=== PATIENT | female | born 2005 | race Caucasian/White ===

== ENCOUNTER 2023-10-04 07:45 | Emergency (ER) | payer MEDICAID, SELFPAY ==
[2023-10-04 07:46] VITALS: BP 160/91; PULSE 97; RESP 14; TEMP 36.8; O2SAT 97; BMI 53.1
[2023-10-04 08:09] LABS: Microscopic, Urine URINE MICROSCOPIC (MICROSCOPIC)
[2023-10-04 08:19] LABS: Coronavirus 19, PCR Not Detected (NotDetected); Influenza A, PCR Not Detected (NotDetected); Influenza B, PCR Not Detected (NotDetected)
[2023-10-04] MEDS: LACTATED RINGERS 1000ML 1,000 ML 999 ML IV (08:19)
[2023-10-04] MEDS: ONDANSETRON 4MG/2ML VIAL 4 MG IV (08:20)
[2023-10-04 08:22] LABS: Basophils % 0.4 % (0.1-2.0); Eosinophils # 0.2 K/mm3 (0.0-0.4); Eosinophils % 2.3 % (0.1-12.0); Hematocrit 44.7 % (37.0-47.0); Hemoglobin 14.7 g/dL (12.2-16.2); Lymphocytes # 1.6 K/mm3 (0.7-4.5); Mean Corpuscular Hemoglobin 29.3 pg (27.0-31.2); Mean Corpuscular Volume 88.7 fl (81-99); Mean Platelet Volume 8.2 fl (7.4-10.4); Monocytes # 0.4 K/mm3 (0.1-1.0); Monocytes % 5.6 % (1.7-9.3); Neutrophils # 5.6 K/mm3 (1.8-7.8); Neutrophils % 71.7 % (37.0-80.0); Platelet Count 373 K/mm3 (142-424); Red Blood Count 5.04 M/mm3 (4.20-5.40); Red Cell Distribution Width 13.7 % (11.5-17.5); White Blood Count 7.8 K/mm3 (4.5-13.0)
[2023-10-04 08:30] VITALS: BP 127/82; PULSE 90; RESP 20; O2SAT 98
[2023-10-04 08:30] LABS: Appearance,Urine CLEAR (Clear); Bilirubin,Urine Negative (Negative); Blood, Urine Negative (Negative); Color,Urine YELLOW (Yellow); Glucose,Urine (UA) Negative (Negative); Ketones,Urine Negative (Negative); Leukocyte Esterase,Urine Negative (Negative); Nitrate,Urine Negative (Negative); Protein,Urine Negative (Negative); Specific Gravity, Urine >= 1.030 (1.005-1.030); Urobilinogen,Urine 0.2 EU/dl (0.2)
[2023-10-04 08:30] LABS: Chloride 104 mmol/L (98-107); Potassium 3.9 mmoL/L (3.5-5.1); Sodium 137 mmol/L (136-145)
[2023-10-04 08:32] LABS: Blood Urea Nitrogen 12 mg/dl (7-17); Creatinine Clearance Estimated 101 mL/min (50-200); Estimated Glomerular Filt Rate 80 ml/min (>60); GFR (African American) 97 ML/MIN (>60)
--- NOTE | 2023-10-04 08:32 | PC.NURSE ---
Rounded on pt to see if they had any needs. No needs at this time.
[2023-10-04 08:33] LABS: Alanine Aminotransferase 39 U/L (12-78); Albumin Level 4.4 g/dl (3.5-5.0); Albumin/Globulin Ratio 1.3 (1.1-1.8); Alkaline Phosphatase 62 U/L (38-126); Anion Gap 5.9 mEq/L (5-15); Aspartate Amino Transferase 36 U/L (14-36); Bilirubin,Total 0.7 mg/dl (0.2-1.3); Calcium 8.4 mg/dl (8.4-10.2); Carbon Dioxide 31 mmol/L (22.0-30.0); Globulin 3.3 g/dL (1.3-3.2); Glucose 104 mg/dl (74-100); Lipase 71 U/L (23-300); Total Protein,Serum 7.7 g/dl (6.3-8.2)
--- NOTE | 2023-10-04 08:42 | ED_ITS ---
Discharge Plan Disposition Patient Disposition: Home, Self-Care Prescriptions Prescriptions: New ondansetron 4 mg tablet,disintegrating 4 mg PO Q6H PRN (Reason: nausea and vomiting) Qty: 10 0RF Referrals Follow up/Referrals: Tahir Jauregui MD [Primary Care Provider] - See instructions Activity Restrictions/Add. Instructions Additional Instructions/Restrictions: Call your family doctor to establish care for this visit to the emergency department and schedule follow-up within 48 hours to ensure improvement. If you have any worsening of your condition or any other concerning signs or symptoms, return to the emergency department or your primary care doctor for further evaluation. Clinical Impressions Clinical Impression: Vomiting Instructions Patient Instructions: DI for Diarrhea and Traveler's Diarrhea -- Adult, DI for Diarrhea and Traveler's Diarrhea -- Child, DI for Nausea -- Adult, DI for Nausea -- Child Discharge ED Provider: Shantanu Teran General Adult HPI General Chief complaint: Nausea/Vomiting/Diarrhea Stated complaint: Nausea, diarrea, vomiting, abd pain Time Seen by Provider: 10/04/23 07:49 Mode of Arrival: Ambulatory Source of Information: Patient Limitations: No Limitations Description of Symptoms (Recalled from ER Triage Doc. by RN): Pt reports N/V/D that started last night and has gotten worse this am. She also endorses mild abd discomfort as well. Abd is soft and non-tender. History of Present Illness HPI narrative: 18-year-old female history of pancreatitis presenting with abdominal cramping, vomiting and diarrhea. Started yesterday morning, 10/03. Has not noticed anything that makes it better or worse. Not associated with food intake. Vomiting is nonbloody, nonbilious, diarrhea is nonbloody, not mucousy. Patient having no abdominal discomfort in the absence of vomiting other than mild cramping. No urinary symptoms. States that she was around numerous sick kids recently, but unsure of their symptoms. Related Data Previous Rx's Medication Instructions Recorded ondansetron 4 mg disintegrating 4 mg PO Q6H PRN nausea and 10/04/23 tablet vomiting #10 tabs Allergies Allergy/AdvReac Type Severity Reaction Status Date / Time No Known Allergies Allergy Verified 10/04/23 08:05 [facility] Disclaimer: The information contained in this section may have been updated after the patient was seen, as this information can be updated by other users. Surgical History (Updated 10/04/23 @ 08:06 by Nilesh Farah RN) Hx of cholecystectomy Social History Smoking Status: Never smoker alcohol intake: current current occupational status: employed Travel in the last 8 weeks: None ROS Obtained: Yes All systems reviewed & no additional complaints except as documented Physical Exam General General appearance: alert and in no apparent distress Head Head exam: atraumatic and normocephalic Eye Eye exam: Present normal appearance, PERRL and EOMI ENT ENT exam: Present mucous membranes moist Neck Neck exam: Present normal inspection, full ROM and trachea midline Respiratory Respiratory exam: Absent respiratory distress, wheezes, stridor, accessory muscle use or prolonged expiratory phase Cardiovascular Cardiovascular exam: Present normal rhythm Abdominal Exam Abdominal exam: Present soft; Absent distention, tenderness, guarding, rebound or rigidity Extremities Exam Extremities exam: Absent edema Neurological Exam Neurological exam: Present alert, oriented X3, CN II-XII intact and normal gait; Absent motor sensory deficit Skin Skin exam: Present warm and dry; Absent diaphoresis or erythema Medical Decision Making Medical Records Medical records reviewed: Yes I reviewed the patient's medical records. Jon Inquiry Pt receiving controlled substance: No Jon was queried for this patient: No Vital Signs: 10/04/23 07:46 10/04/23 08:30 Temperature 98.2 F Temperature Source Oral Pulse Rate 90 Pulse Rate [Right Radial] 97 H Respiratory Rate 14 20 Blood Pressure 127/82 Blood Pressure [Right Arm] 160/91 H Blood Pressure Mean 97 Blood Pressure Mean [Right Arm] 114 Blood Pressure Source [Right Arm] Automatic Cuff Blood Pressure Position [Right Arm] Sitting 02 Sat by Pulse Oximetry 97 98 Oxygen Delivery Method Room Air Lab Data Lab Results 10/04/23 07:54: Urine Color Yellow, Urine Appearance Clear, Urine pH 6.0, Ur Specific [place] >= 1.030, Urine Protein Negative, Urine Glucose (UA) Negative, Urine Ketones Negative, Urine Blood Negative, Urine Nitrate Negative, Urine Bilirubin Negative, Urine Urobilinogen 0.2, Ur Leukocyte Esterase Negative, Urine RBC None, Urine WBC 3-5, Ur Squamous Epith Cells 3-5, Urine Bacteria Trace 10/04/23 08:00: WBC 7.8, RBC 5.04, Hgb 14.7, Hct 44.7, MCV 88.7, MCH 29.3, MCHC 33.0, RDW 13.7, Plt Count 373, MPV 8.2, Neut % (Auto) 71.7, Lymph % (Auto) 20.0, [place] % (Auto) 5.6, Eos % (Auto) 2.3, Baso % (Auto) 0.4, Neut # (Auto) 5.6, Lymph # (Auto) 1.6, [place] # (Auto) 0.4, Eos # (Auto) 0.2, Baso # (Auto) 0.0, Sodium 137, Potassium 3.9, Chloride 104, Carbon Dioxide 31 H, Anion Gap 5.9, BUN 12, Creatinine 0.90, Estimated Creat Clear 101, Estimated GFR 80, Est GFR ( Amer) 97, Glucose 104 H, Calcium 8.4, Total Bilirubin 0.7, AST 36, ALT 39, Alkaline Phosphatase 62, Total Protein 7.7, Albumin 4.4, Globulin 3.3 H, Albumin/Globulin Ratio 1.3, Lipase 71, HCG, Quant < 2, SARS-CoV-2 (PCR) Not detected, Influenza A Untype (PCR) Not detected, Influenza Type B (PCR) Not detected 10/04/23 08:00 10/04/23 08:00 Orders (Tests/Meds): ED MEDICATIONS Discontinued Medications Generic Name Dose Route Start Last Admin Trade Name Freq PRN Reason Stop Dose Admin Lactated Ringer's 1,000 mls @ 999 mls/hr 10/04/23 08:06 10/04/23 08:19 Lactated Ringer's 1000 Ml Bag IV 10/04/23 09:06 999 mls/hr .Q1H1M ONE Administration Ondansetron HCl 4 mg 10/04/23 08:06 10/04/23 08:20 Ondansetron 4mg/2ml Vial IV 10/04/23 08:07 4 mg ONCE ONE Administration ORDERS Category Date Time Status CBC w/Auto Diff [Complete Blood Count Auto Diff] Stat Lab 10/04/23 08:00 Compl eted CMP [Comprehensive Metabolic Panel] Stat Lab 10/04/23 08:00 Completed HCG,Quantitative Stat Lab 10/04/23 08:00 Completed Lipase Stat Lab 10/04/23 08:00 Completed Rapid PCR Covid and Flu A/B Stat Lab 10/04/23 08:00 Completed UA [Urinalysis and Microscopic] Stat Lab 10/04/23 07:54 Completed Medical Decision Narrative: 18-year-old female history of pancreatitis, cholecystectomy presenting with abdominal cramping, vomiting and diarrhea. Started yesterday morning, 10/03. Has not noticed anything that makes it better or worse. Not associated with food intake. Vomiting is nonbloody, nonbilious, diarrhea is nonbloody, not mucousy. Patient having no abdominal discomfort in the absence of vomiting other than mild cramping. No urinary symptoms. States that she was around numerous sick kids recently, but unsure of their symptoms. History was obtained via conversation with patient. On arrival, patient hemodynamically stable, alert, oriented x4, appropriate, GCS 15, moving all extremities spontaneously, pupils equal and reactive to light. Full physical exam performed and significant for very well-appearing patient in no acute distress. Abdomen is soft, nontender, nondistended. No flank tenderness. Not actively retching, hemodynamically stable and afebrile. Differential includes PUD, gastritis, enteritis, gastroenteritis, pancreatitis, SBO, colitis, diverticulitis, nephrolithiasis, UTI, , cholecystitis, appendicitis, hepatitis, torsion, aortic pathology, mesenteric ischemia among others. Patient was given Zofran IV, 1 L LR for symptomatic management and correction of underlying abnormalities. Workup independently interpreted and significant for nonactionable CBC or chemistry. negative, UA negative. Lipase normal. See radiology read for full review of final results. CT of the abdomen pelvis was considered. Deemed unnecessary at this time given nonperitoneal ache abdomen, very well- appearing girl, acuity of symptoms, numerous sick contacts, and history more consistent with infectious process. On reevaluation, patient resting comfortably in bed. States that she is feeling better and wants to go home and go to bed. Given patient presentation, workup, history, this most likely represents acute gastritis versus other vomiting syndrome. Because patient at baseline without signs or symptoms of clinical decompensation, deemed appropriate for discharge. Results were relayed to patient who voiced understanding and were agreeable to outpatient management and follow up. At the time of discharge the patient was hemodynamically stable, tolerating PO, and mobilizing appropriately. Critical Care Critical Care Time Critical Care Time: No
[2023-10-04 08:49] LABS: Bacteria,Urine Trace /lpf
[2023-10-04 09:03] LABS: HCG,Quantitative < 2 mIU/ml (0-5.42)
--- NOTE | 2023-10-04 09:53 | PC.NURSE ---
rounded on pt, blanket given to pt
--- NOTE | 2023-10-04 10:11 | PC.NURSE ---
Rounded on pt to see if they had any needs. Pt asked for a blanket and one was given to the pt. No other needs at this time
[2023-10-04 10:19] VITALS: BP 148/88; PULSE 90; RESP 18; TEMP 36.8; O2SAT 98
== END 2023-10-04 10:20 | disposition home or self-care (01) ==
PROVIDERS: Emergency Provider Emergency Medicine; PCP Internal Medicine Adolescent Medicine
DX: R10.9 Unspecified abdominal pain (principal); R11.2 Nausea with vomiting, unspecified; R19.7 Diarrhea, unspecified
CPT/HCPCS: 80053; 81001; 83690; 84702; 85025; 87636; 96361; 96374; 99285; J2405

== ENCOUNTER 2025-07-29 21:38 | Emergency (ER) | payer MEDICAID, SELFPAY ==
[2025-07-29] VITALS (11 sets, daily range): BP systolic 103–136; BP diastolic 47–77; PULSE 69–81; RESP 17–18; TEMP 36.8; O2SAT 94–97; BMI 59.3
--- OUTSIDE RECORDS SUMMARY | 2025-07-29 21:47 | XMS_ITS | Data Portability ---
Author Organization [facility] Address [address] [place] [address] Assessment No assessment recorded. Plan of Treatment Reminders Order Date Submit Date Provider Last Modified By Organization Details Last Modified Time Details Appointments FOLLOW UP 15 2025 01:30P M Salena Bray APRN Not available Not available Not available Lab urinalysi s, dipstick [address], [id number], 10/15/2024 13:42:22 test, urine [address], [address], 10/15/2024 13:42:29 lipid panel, serum 2024 025 [facility], [address] [place] [address], [address], 10/20/2024 11:06:58 CBC w/ auto diff 2024 025 [facility], [address] [place] [address], [address], 10/20/2024 11:06:57 CMP, serum or plasma 2024 025 [facility], [address] [place] [address], [address], 10/20/2024 11:06:57 prolactin , serum 2024 025 [facility] [address] [place], [address], 10/20/2024 11:06:59 dhea, serum 2024 025 [facility] [address] [place], [address], 10/20/2024 11:06:59 magnesium , serum or plasma 2024 025 [facility] [address] [place], [address], 10/20/2024 11:06:59 PTH (parathyr oid hormone), intact, serum or plasma 2024 025 [facility] [address] [place], [address], 10/20/2024 11:07:00 lh + FSH, serum 2024 025 [facility] [address] [place], [address], 10/20/2024 11:06:58 HbA1c (hemoglob in A1c), blood 2024 025 [facility] [address] [place], [address], 10/20/2024 11:06:58 vitamin D, 25-hydrox y, total, serum 2024 025 [facility] [address] [place], [address], 10/20/2024 11:06:59 lipid panel, serum 2023 024 [facility]), [address] [place], [address], 04/10/2024 08:14:06 CBC w/ auto diff 2023 024 [facility] [address] [place], [address], 04/10/2024 08:14:05 CMP, serum or plasma 2023 024 [facility] [address] [place], [address], 04/10/2024 08:14:06 TSH + free T4, serum 2023 024 [facility] [address] [place], [address], 04/10/2024 08:14:04 HbA1c (hemoglob in A1c), blood 2023 024 [facility] [address] [place], [address], 04/10/2024 08:14:07 vitamin D, 25-hydrox y, total, serum 2023 024 [facility] [address] [place], [address], 04/10/2024 08:14:08 Referral gynecolog ist referral - first available appt 2024 025 [email or web address] Neo Salazar [facility], [address] [place] [address] Rd, Alber[place], [place], [address], 10/22/2024 09:08:38 dermatolo gist referral - first available appt 2023 024 [email or web address] [facility], [address] [place] [address], [id number], 05/20/2024 15:38:37 Procedures foreign body removal, ear canal (PROC) 2023 024 Not available 04/09/2024 11:40:42 Surgeries None recorded. Imaging electroca rdiogram 03/04/ 2025 03/04/2 025 [facility], [address] [place] [address], [id number], 10/15/2024 13:39:46 XR, lumbar spine 2023 024 [facility], [address] [place] [address], [id number], 04/09/2024 16:50:54 Medication Orders ergocalci ferol (vitamin D2) 1,250 mcg (50,000 unit) capsule 2024 025 [facility], [address] [place] [address], [address], 10/15/2024 14:21:46 omeprazol e 20 mg capsule,d elayed release 2024 025 [facility], [address] [place] [address], [id number], 01/07/2025 12:55:42 omeprazol e 20 mg capsule,d elayed release [address] [facility], [address] [place] [address], [address], 07/05/2024 11:35:51 Patient Targets Encounter Date Encounter Id Patient Goals Patient Target Last Modified By Organization Details Last Modified Time 04/11/2024 [id number] Continue care with PCP [email or web address] Not available 04/11/2024 09:11:26 Patient Instructions Encounter Date Encounter Id Patient Instructions Last Modified By Organization Details Last Modified Time 04/11/2024 [id number] Patient was referred to me by PCP staff. Patient stated that she needed assistance because she did not have the money to cover her need of clothing. Clothing was obtained for patient and given to her. I also let patient know that Insurance offers other extra benefits and how to obtain those so she will have extra money for other items she may need. I gave patient my contact information for follow up if needed. 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 first available appt Referring Physician: Lori Bray [facility], Encounter Date: 10/15/2024 Results Created Date Observation Date Name Description Value Unit Range Abnormal Flag Note LastModifiedBy Organization Detail LastModifiedTime 04/09/2004/10/2024 TSH+F REE T4 TSH 2.310 uIU/m L 0.450- 4.500 normal Not Available [facility] ([facility]) [address] [place], [address], 04/10/2024 08:14:04 04/09/2004/10/2024 TSH+F REE T4 T4,free(dire ct) 1.29 NG/dL 0.82-1 .77 normal Not Available [facility] ([facility]) [address] [place], [address], 04/10/2024 08:14:04 04/09/20 24 04/10/2024 CBC WITH DIFFE RENTI AL/PL ATELE T WBC 10.0 x10e3 /uL 3.4-10 .8 normal Not Available [facility] ([facility]) [address] [place], [address], 04/10/2024 08:14:05 04/09/20 24 04/10/2024 CBC WITH DIFFE RENTI AL/PL ATELE T RBC 5.04 x10e6 /uL 3.77-5 .28 normal Not Available [facility] ([facility]) [address] [place], [address], 04/10/2024 08:14:05 04/09/20 24 04/10/2024 CBC WITH DIFFE RENTI AL/PL ATELE T hemoglobin 14.3 g/dL 11.1-1 5.9 normal Not Available [facility] ([facility]) [address] [facility], [place], [address], 04/10/2024 08:14:05 04/09/20 24 04/10/2024 CBC WITH DIFFE RENTI AL/PL ATELE T hematocrit 45.0 % 34.0-4 6.6 normal Not Available [facility] ([facility]) [address] [facility], [place], [address], 04/10/2024 08:14:05 04/09/20 24 04/10/2024 CBC WITH DIFFE RENTI AL/PL ATELE T MCV 89 fL 79-97 normal Not Available [facility] ([facility]) [address] [facility], [place], [address], 04/10/2024 08:14:05 04/09/2004/10/2024 CBC WITH DIFFE RENTI AL/PL ATELE T MCH 28.4 pg 26.6-3 3.0 normal Not Available [facility] ([facility]) [address] [place], [address], 04/10/2024 08:14:05 04/09/20 24 04/10/2024 CBC WITH DIFFE RENTI AL/PL ATELE T MCHC 31.8 g/dL 31.5-3 5.7 normal Not Available [facility] ([facility]) [address] [place], [address], 04/10/2024 08:14:05 04/09/20 24 04/10/2024 CBC WITH DIFFE RENTI AL/PL ATELE T RDW 13.0 % 11.7-1 5.4 Not Available [facility] ([facility]) [address] [place], [address], 04/10/2024 08:14:05 04/09/20 24 04/10/2024 CBC WITH DIFFE RENTI AL/PL ATELE T platelets 434 x10e3 /uL 150-45 0 normal Not Available [facility] ([facility]) [address] [facility], [place], [address], 04/10/2024 08:14:05 04/09/20 24 04/10/2024 CBC WITH DIFFE RENTI AL/PL ATELE T neutrophils 66 % not estab. normal Not Available [facility] ([facility]) [address] [facility], [place], [address], 04/10/2024 08:14:05 04/09/20 24 04/10/2024 CBC WITH DIFFE RENTI AL/PL ATELE T lymphs 25 % not estab. normal Not Available [facility] ([facility]) [address] [facility], [place], [address], 04/10/2024 08:14:05 04/09/20 24 04/10/2024 CBC WITH DIFFE RENTI AL/PL ATELE T monocytes 7 % not estab. normal Not Available [facility] ([facility]) [address] [facility], [place], [address], 04/10/2024 08:14:05 04/09/20 24 04/10/2024 CBC WITH DIFFE RENTI AL/PL ATELE T eos 2 % not estab. normal Not Available [facility] ([facility]) [address] [place], [address], 04/10/2024 08:14:05 04/09/20 24 04/10/2024 CBC WITH DIFFE RENTI AL/PL ATELE T basos 0 % not estab. normal Not Available [facility] ([facility]) [address] [place], [address], 04/10/2024 08:14:05 04/09/20 24 04/10/2024 CBC WITH DIFFE RENTI AL/PL ATELE T immature cells YEAST MAKER Not Available [facility] ([facility]) [address] [place], [address], 04/10/2024 08:14:05 04/09/20 24 04/10/2024 CBC WITH DIFFE RENTI AL/PL ATELE T neutrophils (absolute) 6.5 x10e3 /uL 1.4-7. 0 normal Not Available [facility] ([facility]) [address] [facility], [place], [address], 04/10/2024 08:14:05 04/09/20 24 04/10/2024 CBC WITH DIFFE RENTI AL/PL ATELE T lymphs (absolute) 2.5 x10e3 /uL 0.7-3. 1 normal Not Available [facility] ([facility]) [address] [place], [address], 04/10/2024 08:14:05 04/09/20 24 04/10/2024 CBC WITH DIFFE RENTI AL/PL ATELE T monocytes(ab solute) 0.7 x10e3 /uL 0.1-0. 9 normal Not Available [facility] ([facility]) [address] [facility], [place], [address], 04/10/2024 08:14:05 04/09/20 24 04/10/2024 CBC WITH DIFFE RENTI AL/PL ATELE T eos (absolute) 0.2 x10e3 /uL 0.0-0. 4 normal Not Available [facility] ([facility]) [address] [place], [address], 04/10/2024 08:14:05 04/09/20 24 04/10/2024 CBC WITH DIFFE RENTI AL/PL ATELE T baso (absolute) 0.0 x10e3 /uL 0.0-0. 2 normal Not Available [facility] ([facility]) [address] [place], [address], 04/10/2024 08:14:05 04/09/20 24 04/10/2024 CBC WITH DIFFE RENTI AL/PL ATELE T immature granulocytes 0 % not estab. Not Available [facility] ([facility]) [address], [place], [address], 04/10/2024 08:14:05 04/09/20 24 04/10/2024 CBC WITH DIFFE RENTI AL/PL ATELE T immature grans (abs) 0.0 x10e3 /uL 0.0-0. 1 Not Available [facility] ([facility]) [address], [place], [address], 04/10/2024 08:14:05 04/09/20 24 04/10/2024 CBC WITH DIFFE RENTI AL/PL ATELE T NRBC YEAST MAKER Not Available [facility] ([facility]) [address], [place], [address], 04/10/2024 08:14:05 04/09/20 24 04/10/2024 CBC WITH DIFFE RENTI AL/PL ATELE T hematology comments: YEAST MAKER Not Available [facility] ([facility]) [address], [place], [address], 04/10/2024 08:14:05 04/09/20 24 04/10/2024 COMP. METAB OLIC PANEL (14) glucose 91 mg/dL 70-99 normal Not Available [facility] ([facility]) [address] [facility], [place], [address], 04/10/2024 08:14:06 04/09/20 24 04/10/2024 COMP. METAB OLIC PANEL (14) BUN 13 mg/dL 6-20 normal Not Available [facility] ([facility]) [address] [facility], [place], [address], 04/10/2024 08:14:06 04/09/20 24 04/10/2024 COMP. METAB OLIC PANEL (14) creatinine 0.78 mg/dL 0.57-1 .00 normal Not Available [facility] ([facility]) [address] [facility], [place], [address], 04/10/2024 08:14:06 04/09/20 24 04/10/2024 COMP. METAB OLIC PANEL (14) eGFR 111 mL/mi n/1.7 3 >59 normal Not Available [facility] ([facility]) [address] [facility], [place], [address], 04/10/2024 08:14:06 04/09/20 24 04/10/2024 COMP. METAB OLIC PANEL (14) BUN/creatini ne ratio 17 9-23 normal Not Available [facility] ([facility]) [address] [facility], [place], [address], 04/10/2024 08:14:06 04/09/20 24 04/10/2024 COMP. METAB OLIC PANEL (14) sodium 137 mmol/ L 134-14 4 normal Not Available [facility] ([facility]) [address] [facility], [place], [address], 04/10/2024 08:14:06 04/09/20 24 04/10/2024 COMP. METAB OLIC PANEL (14) potassium 4.6 mmol/ L 3.5-5. 2 normal Not Available [facility] ([facility]) [address] [facility], [place], [address], 04/10/2024 08:14:06 04/09/20 24 04/10/2024 COMP. METAB OLIC PANEL (14) chloride 100 mmol/ L 96-106 normal Not Available [facility] ([facility]) [address] [facility], [place], [address], 04/10/2024 08:14:06 04/09/20 24 04/10/2024 COMP. METAB OLIC PANEL (14) carbon dioxide, total 25 mmol/ L 20-29 normal Not Available [facility] ([facility]) [address] [facility], [place], [address], 04/10/2024 08:14:06 08/27/04/10/2024 COMP. METAB OLIC PANEL (14) calcium 9.7 mg/dL 8.7-10 .2 normal Not Available [facility] ([facility]) [address] [facility] [place], [address], 04/10/2024 08:14:06 04/09/20 24 04/10/2024 COMP. METAB OLIC PANEL (14) protein, total 7.2 g/dL 6.0-8. 5 normal Not Available [facility] ([facility]) [address] [facility], [place], [address], 04/10/2024 08:14:06 04/09/2004/10/2024 COMP. METAB OLIC PANEL (14) albumin 4.3 g/dL 4.0-5. 0 normal Not Available [facility] ([facility]) [address] [facility] [place], [address], 04/10/2024 08:14:06 04/09/20 24 04/10/2024 COMP. METAB OLIC PANEL (14) globulin, total 2.9 g/dL 1.5-4. 5 Not Available [facility] ([facility]) [address] [facility] [place], [address], 04/10/2024 08:14:06 04/09/20 24 04/10/2024 COMP. METAB OLIC PANEL (14) bilirubin, total 0.3 mg/dL 0.0-1. 2 normal Not Available [facility] ([facility]) [address] [facility] [place], [address], 04/10/2024 08:14:06 04/09/20 24 04/10/2024 COMP. METAB OLIC PANEL (14) alkaline phosphatase 59 IU/L 44-121 normal Not Available [facility] ([facility]) [address] [facility], [place], [address], 04/10/2024 08:14:06 04/09/20 24 04/10/2024 COMP. METAB OLIC PANEL (14) AST (SGOT) 22 IU/L 0-40 normal Not Available [facility] ([facility]) [address] [place], [address], 04/10/2024 08:14:06 04/09/20 24 04/10/2024 COMP. METAB OLIC PANEL (14) ALT (SGPT) 30 IU/L 0-32 normal Not Available [facility] ([facility]) [address] [facility] [place], [address], 04/10/2024 08:14:06 04/09/20 24 04/10/2024 LIPID PANEL cholesterol, total 195 mg/dL 100-19 9 normal Not Available [facility] ([facility]) [address] [facility] [place], [address], 04/10/2024 08:14:06 04/09/20 24 04/10/2024 LIPID PANEL triglyceride s 132 mg/dL 0-149 normal Not Available [facility] ([facility]) [address] [facility] [place], [address], 04/10/2024 08:14:06 04/09/20 24 04/10/2024 LIPID PANEL HDL cholesterol 51 mg/dL >39 normal Not Available [facility] ([facility]) [address] [facility] [place], [address], 04/10/2024 08:14:06 04/09/20 24 04/10/2024 LIPID PANEL VLDL cholesterol angie 23 mg/dL 5-40 Not Available [facility] ([facility]) [address] [facility] [place], [address], 04/10/2024 08:14:06 04/09/20 24 04/10/2024 LIPID PANEL LDL chol calc ([facility] [place]) 121 mg/dL 0-99 above high normal Not Available [facility] ([facility]) [address] [facility] [place], [address], 04/10/2024 08:14:06 08/27/20 24 04/10/2024 LIPID PANEL LDL calc comment: YEAST MAKER Not Available [facility] ([facility]) [address] [facility], [place], [address], 04/10/2024 08:14:06 04/09/20 24 04/10/2024 HEMOG LOBIN A1C hemoglobin A1C 5.7 % 4.8-5. 6 above high normal Predi abete s: 5.7 - 6.4 Diabe reinaldo: >6.4 Glyce daisy contr ol for adult s with diabe reinaldo: <7.0 Not Available [facility] ([facility]) [address] [facility], [place], [address], 04/10/2024 08:14:07 04/09/20 24 04/10/2024 VITAM IN D, 25-HY DROXY vitamin D, 25-hydroxy 12.4 NG/mL 30.0-1 00.0 below low normal Vitam in D defic iency has been defin ed by the Insti tute of Medic ine and an Endoc rine Socie ty pract ice guide line as a level of serum 25-OH vitam in D less than 20 ng/mL (1,2) . The Endoc rine Socie ty went on to furth er defin e vitam in D insuf ficie ncy as a level betwe en 21 and 29 ng/mL (2). 1. IOM (Inst itute of Medic ine). 2009. Dieta ry refer ence bernardo es for calci um and D. Modesto vanessa [place]: The [facility] . 2. Abundio malik MF, Hao arizmendi [place], Noreen off-F errar i RAPHAEL, et al. Evalu ation , treat ment, and preve ntion of vitam in D defic iency : an Endoc rine Socie ty clini angie pract ice guide line. JCEM. 2010; 96(7) :1911 -30. Not Available [facility] ([facility]) [address] [facility], [place], [address], 04/10/2024 08:14:07 10/16/19 25 10/16/2024 CBC WITH DIFFE RENTI AL/PL ATELE T WBC 8.6 x10e3 /uL 3.4-10 .8 normal Not Available [facility] ([facility]) [address] [place], [address], 10/20/2024 11:06:57 10/16/19 25 10/16/2024 CBC WITH DIFFE RENTI AL/PL ATELE T RBC 4.69 x10e6 /uL 3.77-5 .28 normal Not Available [facility] ([facility]) [address] [place], [address], 10/20/2024 11:06:57 10/16/19 25 10/16/2024 CBC WITH DIFFE RENTI AL/PL ATELE T hemoglobin 13.1 g/dL 11.1-1 5.9 normal Not Available [facility] ([facility]) [address] [place], [address], 10/20/2024 11:06:57 10/16/19 25 10/16/2024 CBC WITH DIFFE RENTI AL/PL ATELE T hematocrit 39.3 % 34.0-4 6.6 normal Not Available [facility] ([facility]) [address] [place], [address], 10/20/2024 11:06:57 10/16/19 25 10/16/2024 CBC WITH DIFFE RENTI AL/PL ATELE T MCV 84 fL 79-97 normal Not Available [facility] ([facility]) [address] [place], [address], 10/20/2024 11:06:57 10/16/19 25 10/16/2024 CBC WITH DIFFE RENTI AL/PL ATELE T MCH 27.9 pg 26.6-3 3.0 normal Not Available [facility] ([facility]) [address] [place], [address], 10/20/2024 11:06:57 10/16/19 25 10/16/2024 CBC WITH DIFFE RENTI AL/PL ATELE T MCHC 33.3 g/dL 31.5-3 5.7 normal Not Available [facility] ([facility]) [address] [facility], [place], [address], 10/20/2024 11:06:57 10/16/19 25 10/16/2024 CBC WITH DIFFE RENTI AL/PL ATELE T RDW 13.1 % 11.7-1 5.4 Not Available [facility] ([facility]) [address] [facility], [place], [address], 10/20/2024 11:06:57 10/16/19 25 10/16/2024 CBC WITH DIFFE RENTI AL/PL ATELE T platelets 399 x10e3 /uL 150-45 0 normal Not Available [facility] ([facility]) [address] [facility], [place], [address], 10/20/2024 11:06:57 10/16/19 25 10/16/2024 CBC WITH DIFFE RENTI AL/PL ATELE T neutrophils 60 % not estab. normal Not Available [facility] ([facility]) [address] [facility], [place], [address], 10/20/2024 11:06:57 10/16/19 25 10/16/2024 CBC WITH DIFFE RENTI AL/PL ATELE T lymphs 29 % not estab. normal Not Available [facility] ([facility]) [address] [facility], [place], [address], 10/20/2024 11:06:57 10/16/19 25 10/16/2024 CBC WITH DIFFE RENTI AL/PL ATELE T monocytes 8 % not estab. normal Not Available [facility] ([facility]) [address] [facility], [place], [address], 10/20/2024 11:06:57 10/16/19 25 10/16/2024 CBC WITH DIFFE RENTI AL/PL ATELE T eos 2 % not estab. normal Not Available [facility] ([facility]) [address] [place], [address], 10/20/2024 11:06:57 10/16/19 25 10/16/2024 CBC WITH DIFFE RENTI AL/PL ATELE T basos 1 % not estab. normal Not Available [facility] ([facility]) [address] [facility], [place], [address], 10/20/2024 11:06:57 10/16/19 25 10/16/2024 CBC WITH DIFFE RENTI AL/PL ATELE T immature cells YEAST MAKER Not Available [facility] ([facility]) [address] [place], [address], 10/20/2024 11:06:57 10/16/19 25 10/16/2024 CBC WITH DIFFE RENTI AL/PL ATELE T neutrophils (absolute) 5.2 x10e3 /uL 1.4-7. 0 normal Not Available [facility] ([facility]) [address] [place], [address], 10/20/2024 11:06:57 10/16/19 25 10/16/2024 CBC WITH DIFFE RENTI AL/PL ATELE T lymphs (absolute) 2.5 x10e3 /uL 0.7-3. 1 normal Not Available [facility] ([facility]) [address] [place], [address], 10/20/2024 11:06:57 10/16/19 25 10/16/2024 CBC WITH DIFFE RENTI AL/PL ATELE T monocytes(ab solute) 0.7 x10e3 /uL 0.1-0. 9 normal Not Available [facility] ([facility]) [address] [place], [address], 10/20/2024 11:06:57 10/16/19 25 10/16/2024 CBC WITH DIFFE RENTI AL/PL ATELE T eos (absolute) 0.2 x10e3 /uL 0.0-0. 4 normal Not Available [facility] ([facility]) [address] [facility], [place], [address], 10/20/2024 11:06:57 10/16/19 25 10/16/2024 CBC WITH DIFFE RENTI AL/PL ATELE T baso (absolute) 0.1 x10e3 /uL 0.0-0. 2 normal Not Available [facility] ([facility]) [address] [facility], [place], [address], 10/20/2024 11:06:57 10/16/19 25 10/16/2024 CBC WITH DIFFE RENTI AL/PL ATELE T immature granulocytes 0 % not estab. Not Available [facility] ([facility]) [address] [facility], [place], [address], 10/20/2024 11:06:57 10/16/19 25 10/16/2024 CBC WITH DIFFE RENTI AL/PL ATELE T immature grans (abs) 0.0 x10e3 /uL 0.0-0. 1 Not Available [facility] ([facility]) [address] [facility], [place], [address], 10/20/2024 11:06:57 10/16/19 25 10/16/2024 CBC WITH DIFFE RENTI AL/PL ATELE T NRBC YEAST MAKER Not Available [facility] ([facility]) [address] [facility], [place], [address], 10/20/2024 11:06:57 10/16/19 25 10/16/2024 CBC WITH DIFFE RENTI AL/PL ATELE T hematology comments: YEAST MAKER Not Available [facility] ([facility]) [address] [facility], [place], [address], 10/20/2024 11:06:57 10/16/19 25 10/16/2024 COMP. METAB OLIC PANEL (14) glucose 106 mg/dL 70-99 above high normal Not Available [facility] ([facility]) [address] [place], [address], 10/20/2024 11:06:57 10/16/19 25 10/16/2024 COMP. METAB OLIC PANEL (14) BUN 14 mg/dL 6-20 normal Not Available [facility] ([facility]) [address] [place], [address], 10/20/2024 11:06:57 10/16/19 25 10/16/2024 COMP. METAB OLIC PANEL (14) creatinine 0.68 mg/dL 0.57-1 .00 normal Not Available [facility] ([facility]) [address] [place], [address], 10/20/2024 11:06:57 10/16/19 25 10/16/2024 COMP. METAB OLIC PANEL (14) eGFR 127 mL/mi n/1.7 3 >59 normal Not Available [facility] ([facility]) [address] [place], [address], 10/20/2024 11:06:57 10/16/19 25 10/16/2024 COMP. METAB OLIC PANEL (14) BUN/creatini ne ratio 21 9-23 normal Not Available [facility] ([facility]) [address] [place], [address], 10/20/2024 11:06:57 10/16/19 25 10/16/2024 COMP. METAB OLIC PANEL (14) sodium 139 mmol/ L 134-14 4 normal Not Available [facility] ([facility]) [address] [place], [place], [address], 10/20/2024 11:06:57 10/16/19 25 10/16/2024 COMP. METAB OLIC PANEL (14) potassium 4.4 mmol/ L 3.5-5. 2 normal Not Available [facility] ([facility]) [address] [place], [address], 10/20/2024 11:06:57 10/16/19 25 10/16/2024 COMP. METAB OLIC PANEL (14) chloride 105 mmol/ L 96-106 normal Not Available [facility] ([facility]) [address] [place], [address], 10/20/2024 11:06:57 10/16/19 25 10/16/2024 COMP. METAB OLIC PANEL (14) carbon dioxide, total 22 mmol/ L 20-29 normal Not Available [facility] ([facility]) [address] [place], [address], 10/20/2024 11:06:57 10/16/19 25 10/16/2024 COMP. METAB OLIC PANEL (14) calcium 9.2 mg/dL 8.7-10 .2 normal Not Available [facility] ([facility]) [address] [place], [address], 10/20/2024 11:06:57 10/16/19 25 10/16/2024 COMP. METAB OLIC PANEL (14) protein, total 6.7 g/dL 6.0-8. 5 normal Not Available [facility] ([facility]) [address] [facility] [place], [address], 10/20/2024 11:06:57 10/16/19 25 10/16/2024 COMP. METAB OLIC PANEL (14) albumin 4.1 g/dL 4.0-5. 0 normal Not Available [facility] ([facility]) [address] [place], [address], 10/20/2024 11:06:57 10/16/19 25 10/16/2024 COMP. METAB OLIC PANEL (14) globulin, total 2.6 g/dL 1.5-4. 5 Not Available [facility] ([facility]) [address] [facility] [place], [address], 10/20/2024 11:06:57 10/16/19 25 10/16/2024 COMP. METAB OLIC PANEL (14) bilirubin, total 0.2 mg/dL 0.0-1. 2 normal Not Available [facility] ([facility]) [address] [facility] [place], [address], 10/20/2024 11:06:57 10/16/19 25 10/16/2024 COMP. METAB OLIC PANEL (14) alkaline phosphatase 66 IU/L 44-121 normal Not Available [facility] ([facility]) [address] [facility] [place], [address], 10/20/2024 11:06:57 10/16/19 25 10/16/2024 COMP. METAB OLIC PANEL (14) AST (SGOT) 15 IU/L 0-40 normal Not Available [facility] ([facility]) [address] [place], [address], 10/20/2024 11:06:57 10/16/19 25 10/16/2024 COMP. METAB OLIC PANEL (14) ALT (SGPT) 20 IU/L 0-32 normal Not Available [facility] ([facility]) [address] [facility] [place], [address], 10/20/2024 11:06:57 10/16/19 25 10/16/2024 LIPID PANEL cholesterol, total 173 mg/dL 100-19 9 normal Not Available [facility] ([facility]) [address] [place], [address], 10/20/2024 11:06:57 10/16/19 25 10/16/2024 LIPID PANEL triglyceride s 109 mg/dL 0-149 normal Not Available [facility] ([facility]) [address] [place], [address], 10/20/2024 11:06:57 10/16/19 25 10/16/2024 LIPID PANEL HDL cholesterol 44 mg/dL >39 normal Not Available [facility] ([facility]) [address] [place], [address], 10/20/2024 11:06:57 10/16/19 25 10/16/2024 LIPID PANEL VLDL cholesterol angie 20 mg/dL 5-40 Not Available [facility] ([facility]) [address] [place], [address], 10/20/2024 11:06:57 10/16/19 25 10/16/2024 LIPID PANEL LDL chol calc ([facility] [place]) 109 mg/dL 0-99 above high normal Not Available [facility] ([facility]) [address] [place], [address], 10/20/2024 11:06:57 10/16/19 25 10/16/2024 LIPID PANEL LDL calc comment: YEAST [employer]ER Not Available [facility] ([facility]) [address] [place], [address], 10/20/2024 11:06:57 10/16/19 25 10/16/2024 FSH AND LH LH 6.0 mIU/m L normal Adult Femal e Range Folli cular phase 2.4 - 12.6 Ovula tion phase 14.0 - 95.6 Lutea l phase 1.0 - 11.4 Postm enopa usal 7.7 - 58.5 Not Available [facility] ([facility]) [address] [place], [address], 10/20/2024 11:06:58 10/16/19 25 10/16/2024 FSH AND LH FSH 4.2 mIU/m L Adult Femal e Range Folli cular phase 3.5 - 12.5 Ovula tion phase 4.7 - 21.5 Lutea l phase 1.7 - 7.7 Postm enopa usal 25.8 - 134.8 Not Available [facility] ([facility]) [address] [place], [address], 10/20/2024 11:06:58 10/16/19 25 10/16/2024 HEMOG LOBIN A1C hemoglobin A1C 5.7 % 4.8-5. 6 above high normal Predi abete s: 5.7 - 6.4 Diabe reinaldo: >6.4 Glyce daisy contr ol for adult s with diabe reinaldo: <7.0 Not Available [facility] ([facility]) [address] [place], [address], 10/20/2024 11:06:58 10/16/19 25 10/20/2024 DHEA, SERUM dehydroepian drosterone (DHEA) 204 NG/dL 701 Not Available [facility] ([facility]) [address] [facility], [place], [address], 10/20/2024 11:06:58 10/16/19 25 10/16/2024 PROLA CTIN prolactin 10.4 NG/mL 4.8-33 .4 normal Not Available [facility] ([facility]) [address] [facility], [place], [address], 10/20/2024 11:06:59 10/16/1910/16/2024 VITAM IN D, 25-HY DROXY vitamin D, 25-hydroxy 17.8 NG/mL 30.0-1 00.0 below low normal Vitam in D defic iency has been defin ed by the Insti tute of Medic ine and an Endoc rine Socie ty pract ice guide line as a level of serum 25-OH vitam in D less than 20 ng/mL (1,2) . The Endoc rine Socie ty went on to furth er defin e vitam in D insuf ficie ncy as a level betwe en 21 and 29 ng/mL (2). 1. IOM (Inst itute of Medic ine). 2010. Dieta ry refer ence intak es for calci um and D. Mod[place] vanessa [place]: The [facility] . 2. Abundio malik MF, Binkl ey [place], Bisch off-F leena i RAPHAEL, et al. Evalu ation , treat ment, and preve ntion of vitam in D defic iency : an Endoc rine Socie ty clini angie pract ice guide line. JCEM. 2010; 96(7) :1911 -30. Not Available [facility] ([facility]) [address] [facility], [place], [address], 10/20/2024 11:06:59 10/16/19 25 10/16/2024 MAGNE SIUM magnesium 2.0 mg/dL 1.6-2. 3 normal Not Available [facility] ([facility]) [address] [facility], [place], [address], 10/20/2024 11:06:59 10/16/19 25 10/16/2024 PTH, INTAC T PTH, intact 37 pg/mL 15-65 normal Not Available [facility] ([facility]) [address] [facility], [place], [address], 10/20/2024 11:07:00 10/16/19 25 10/15/2024 pregn charla test, urine HCG negati ve Not Available [address], [address], 10/15/2024 13:30:25 10/16/19 25 10/15/2024 urina lysis , dipst ick Leukocytes Negati ve Not Available [address], [address], 10/15/2024 13:30:24 10/16/19 25 10/15/2024 urina lysis , dipst ick Nitrite negati ve Not Available [address], [address], 10/15/2024 13:30:24 10/16/19 25 10/15/2024 urina lysis , dipst ick Urobilinogen .2 Not Available [address], [address], 10/15/2024 13:30:24 10/16/19 25 10/15/2024 urina lysis , dipst ick Protein Negati ve Not Available [address], [address], 10/15/2024 13:30:24 10/16/19 25 10/15/2024 urina lysis , dipst ick pH 6.5 Not Available [address], [address], 10/15/2024 13:30:24 10/16/19 25 10/15/2024 urina lysis , dipst ick Blood Negati ve Not Available [address], [address], 10/15/2024 13:30:24 10/16/19 25 10/15/2024 urina lysis , dipst ick Specific Gregory 1.010 Not Available [address], [address], 10/15/2024 13:30:24 10/16/19 25 10/15/2024 urina lysis , dipst ick Ketone Negati ve Not Available [address], [address], 10/15/2024 13:30:24 10/16/19 25 10/15/2024 urina lysis , dipst ick Bilirubin Negati ve Not Available [address], [address], 10/15/2024 13:30:24 10/16/19 25 10/15/2024 urina lysis , dipst ick Glucose Negati ve Not Available [address], [address], 10/15/2024 13:30:24 10/16/19 25 10/15/2024 urina lysis , dipst ick Appearance Clear Not Available [address], [address], 10/15/2024 13:30:24 10/16/19 25 10/15/2024 urina lysis , dipst ick Color Yellow Not Available [address], [address], 10/15/2024 13:30:24 04/09/20 24 XR, lumba r spine No observ ation record ed. [address], [address], 04/20/2024 09:11:28 10/16/19 25 elect gera diogr am No observ ation record ed. Not Available 2024 17:48:44 Result Notes None recorded. Problems Name Problem SNOMED Code Status Onset Date Resolution Date Notes Provider Name and Address Organization Details Recorded Time Ingrowing nail 221743854 Active 2018 Problem Code: L60.0; Problem Code Type: ICD-10; Not Available [facility] 21:58:32 Primary amenorrhe a 697523077 Active 2018 Problem Code: N91.0; Problem Code Type: ICD-10; Not Available [facility] 21:58:32 Body mass index 30+ - obesity 733508830 Active 2018 Problem Code: Z68.43; Problem Code Type: ICD-10; Not Available [facility] 21:58:32 Abnormal finding on evaluatio n procedure 267646364 Active [address] [facility] 21:58:32 Foreign body in right ear 799163196718 13250 Active 2023 Frida londono [employer]. 4 11:40:13 Problem Notes None recorded. Procedures Surgical History Date Name Laterality Status Provider Name and Address Organization Details Recorded Time 4 Removal of foreign body in ear canal completed Fridamichael Goodman [id number] | [employer] 04/09/2024 11:40:37 Gallbladder Surgery completed Frida [facility] [employer] 04/09/2024 11:02:32 extraction of wisdom tooth completed Frida [employer] 04/09/2024 11:08:34 Imaging Results None recorded. Procedure Notes None recorded. Medical Equipment None Reported. Allergies No known drug allergies Medications Name Sig Start Date Stop Date Status Note LastModified by Organization Details LastModified Time amoxicillin 500 mg capsule 04/09 completed Not Available Not Available Not Available cefuroxime axetil 250 mg tablet take 1 tablet (250 mg) by oral route 2 times per day 05/15 completed Not Available Not Available Not Available IBU 800 mg tablet 04/09 completed Not Available Not Available Not Available alprazolam 1 mg tablet 04/09 completed Not Available Not Available Not Available oxycodone-ac etaminophen 5 mg-325 mg tablet 04/09 completed Not Available Not Available Not Available cephalexin 500 mg capsule take 1 capsule (500 mg) by oral route every 12 hours for 7 days 04/09 completed Not Available Not Available Not Available omeprazole 20 mg capsule,shahida yed release TAKE ONE CAPSULE BY MOUTH EVERY DAY active Not Available Not Available No t Available Vitamin D2 1,250 mcg (50,000 unit) capsule Take 1 capsule by mouth every week for 90 days. active Not Available Not Available No t Available Vitals Date Recorded Body height Body mass index (BMI) Body weight Heart rate Oxygen saturation Systolic And Diastolic Provider Name and Address Organization Details Last Updated DateTime 5 172.72 cm 62.3 kg/m2 917191. 87 g 93 /min 95 % 121/75 mm[Hg] Frida Goodman [employer]. 5 13:12:42 Date Recorded Body height Body mass index (BMI) Body weight Heart rate Oxygen saturation Systolic And Diastolic Provider Name and Address Organization Details Last Updated DateTime 4 172.72 cm 62.4 kg/m2 875985. 57 g 77 /min 97 % 122/73 mm[Hg] Frida Goodman [employer]. 4 11:11:17 Social History Question Answer Notes LastModified by Organizat ion Details LastModified Time Tobacco Smoking Status Former Smoker Frida Goodman bry [employer]. 04/09/2024 11:02:31 Do You Have An Advance Directive? No Information not available 04/09/2024 Is Your Home Air Conditioned? Yes Information not available 04/09/2024 If You Are , What Was Your Level Of Alcohol Consumption Prior To ? None Information not available 04/09/2024 Do You Wear A Helmet When Biking? Yes Information not available 04/09/2024 Are You Blind Or Do You Have Difficulty Seeing? No Information not available 04/09/2024 What Is Your Level Of Caffeine Consumption? Occasional Information not available 04/09/2024 What Type Of Speech Language Assistant Do You Use? None Information not available 04/09/2024 In The 14 Days Before Symptom Onset, Have You Had Close Contact With A Laboratory-confir med COVID-19 While That Case Was Ill? No Information not available 04/09/2024 In The 14 Days Before Symptom Onset, Have You Had Close Contact With A Person Who Is Under Investigation For COVID-19 While That Person Was Ill? No Information not available 04/09/2024 Have You Been To An Area Known To Be High Risk For COVID-19? No Information not available 04/09/2024 Are You Deaf Or Do You Have Serious Difficulty Hearing? No Information not available 04/09/2024 What Type Of Diet Are You Following? REGULAR Information not available 04/09/2024 Who Is Your Employer? An[employer] Information not available 04/09/2024 How Many Days Of Moderate To Strenuous Exercise, Like A Brisk Walk, Did You Do In The Last 7 Days? 5 Information not available 04/09/2024 Have There Been Any Changes To Your Family Or Social Situation? Yes Information no t available 04/09/2024 When Did You Quit Smoking? 1-5yearssincel astcigarette Information not available 04/09/2024 Are There Any Guns Present In Your Home? No Information not available 04/09/2024 Which Of Your Hands Is Dominant? Left Information not available 04/09/2024 What Is Your Home Situation? Other Information not available 04/09/2024 Do You Have A Medical Power Of Food Service Substitute? No Information not available 04/09/2024 What Was The Date Of Your Most Recent Tobacco Screening? 10/15/2024 Information not available 10/15/2024 Are There Any Occupational Health Risks Where You Work? No Information not available 04/09/2024 What Is Your Current Pack Years? 10packyears Information not available 04/09/2024 Do You Have Any Pets? No Information not available 04/09/2024 Do You Use Protection During Sex? Usually Information not available 04/09/2024 What Is Your Relationship Status? Single Information not available 04/09/2024 Have You Repeated Any Grades? No Information not available 04/09/2024 Do You Use Your Seat Belt Or Car Seat Routinely? Yes Information not available 04/09/2024 Are You Sexually Active? Yes Information not available 04/09/2024 Do You Have Any Siblings? 2 Brothers Information not available 04/09/2024 Do You Have Smoke And Carbon Monoxide Detectors In Your Home? Yes Information not available 04/09/2024 At What Age Did You Start Smoking Tobacco? 14 Information not available 04/09/2024 Are You Passively Exposed To Smoke? No Information no t available 04/09/2024 Are There Any Smokers In Your House? No Information not available 04/09/2024 How Much Tobacco Do You Smoke? 1 PPW Information not available 04/09/2024 What Types Of Sporting Activities Do You Participate In? Work Information not available 04/09/2024 Do You Use Sunscreen Routinely? No Information not available 04/09/2024 Has Tobacco Cessation Counseling Been Provided? Yes Information not available 04/09/2024 On What Date Was Tobacco Cessation Counseling Provided? 10/15/2024 Information not available 10/15/2024 How Many Years Have You Smoked Tobacco? 2 Information not available 04/09/2024 Have You Recently Traveled Abroad? No Information not available 04/09/2024 Do You Have Difficulty Walking Or Climbing Stairs? No Information not available 04/09/2024 Sex: Female Functional Status Question Answer Note LastModified by Organizat ion Details LastModified Time Do you use any illicit or recreational drugs? No Information not available 04/09/2024 Do you or have you ever used any other forms of tobacco or nicotine? Yes Information not available 04/09/2024 What is your level of alcohol consumption? None Information not available 04/09/2024 Are you currently employed? Yes Information not available 04/09/2024 Are you able to walk independently without assistance or assistive devices? YESWOREST Information not available 04/09/2024 Do you have difficulty doing errands alone? No Information not available 04/09/2024 Are you able to care for yourself independently? Yes Information not available 04/09/2024 Do you have difficulty dressing, bathing, grooming, or toileting? No Information not available 04/09/2024 Do you or have you ever used e-cigarettes or vape? Current user of electronic cigarettes Information not available 04/09/2024 What is your exercise level? Occasional Information not available 04/09/2024 Mental Status Question Answer Note LastModified by Organization D etails LastModified Time Do you have difficulty concentrating, remembering or making decisions? No Information no t available 04/09/2024 Are you or have you been involved with bullying? No Information not available 04/09/2024 Family History Relationship Description Onset Age of this Age Resolved Age Notes LastModified by Organization Details LastModified Time Unspecified Relation Family history of Hypothyroidi sm Relati ve: ''; Not available 04/09/2024 11:02:30 Unspecified Relation Family history of hyperlipidem ia Relati ve: ''; Not available 04/09/2024 11:02:30 Unspecified Relation Family history of malignant neoplasm Relati ve: ''; Not available 04/09/2024 11:02:30 Unspecified Relation Family history of Hypertension Relati ve: ''; Not available 04/09/2024 11:02:30 Unspecified Relation Malignant neoplasm of breast Not available 04/09 11:02:30 Paternal Grandmother Diabetes mellitus Not available 04/09 11:02:30 Mother Anxiety disorder Not available 04/09 11:02:30 Mother Depressive disorder Not available 04/09 11:02:30 Mother Malignant neoplasm of colon Not available 04/09 11:02:30 Mother Arthritis Not availa ble 04/09/2024 11:02:30 Mother Hypertensive disorder Not available 04/09 11:02:30 Maternal Grandmother Arthritis Not available 0 04/09/2024 11:02:30 Maternal Grandmother Hypertensive disorder Not available 04/09 11:02:30 Maternal Grandmother Diabetes mellitus Not available 04/09 11:02:30 Maternal Grandfather Liver problem Not available 04/09 11:02:30 Maternal Grandfather Arthritis Not available 0 04/09/2024 11:02:30 Maternal Grandfather Hypertensive disorder Not available 04/09 11:02:30 Maternal Grandfather Heart disease Not available 04/09 11:02:30 Maternal Grandfather Diabetes mellitus Not available 04/09 11:02:30 Notes:*Procedure Description : Documented family medical history in mother*Relative: Mother Medical History Condition Response Allergies (Food, seasonal, environmental ) Y Other Y Obesity Y Gynecological History Statement/Question Response Menses Monthly No HPV Vaccine Y Date of Last Pap Smear Most Recent Mammogram Age at First Child no child Obstetrics History GPAL:G 0 P 0 0 0 0 Immunizations Vaccine Type Date Status Note Provider Nam e and Address Organization Details Recorded Time Hep A, ped/adol, 2 dose 9 completed Not Available [facility] 04/19/2022 23:40:43 Tdap 9 completed Not Available [facility] 04/19/2022 23:40:43 meningococcal MCV4P 9 completed Not Available [facility] 04/19/2022 23:40:43 Past Encounters Encounter ID Performer Location Encounter Start Date Encounter Closed Date Diagnosis/Indication Diagnosis SNOMED-CT Code Diagnosis ICD10 Code Diagnosis IMO Codes Diagnosis Note [id number] Lori Bray[address] 0 04/09/2024 10:46:02 04/09/2024 12:25:36 Low back pain 845768332 M54.50 Fatigue 35928021 R53.83 Hyperlipidemia 46585390 E78.5 Vitamin D deficiency 347 89806 E55.9 Hyperglycemia 29410227 R 73.9 Gastroesop hageal reflux disease without esophagitis 215407178 K21.9 Foreign [place] dy in right ear 4789285389 7784406 T16.1XXA Discoloration of skin 32 16347 R23.8 Body mass index 40+ - severely obese 758496902 Z68.44 [id number] [place] [id number] 04/11/2024 09:09:34 04/11/2024 09:13:37 Inadequate clothing due to limited financial resources 7593357595 Z59.87 [id number] [place]esh [place] [id number] 10/15/2024 12:48:19 10/15/2024 13:38:29 Fatigue 02497889 R53.83 Vitamin D deficiency 347 57816 E55.9 Hyperlipidemia 01874115 E78.5 Hyperglycemia 08547238 R 73.9 Dysuria 76136993 R30.0 Palpitations 73988607 R0 0.2 Amenorrhea 96856584 N91. 2 Gastroesop hageal reflux disease without esophagitis 527288961 K21.9 Body mass index 40+ - severely obese 859757161 Z68.44 Health Concerns Section Related Observation LastModified by Organization Detai ls LastModified Time None Recorded Concern Status LastModified by Organization Details LastModified Time None Recorded Advance Directives Directive N: Payers Insurance Date Sequence Insurance Name Policy Number Policy Gar Covered Member ID Gar Member ID Guarantor Name 07/26/2025 1 [facility] (MEDICAID HMO) Catarina Nascimento [id number] Catarina Nascimento Notes Date Note Type Note Provider Name and Address Organization Details Recorded Time 04/09/2024 text/html pt here today to est PCP. pt c/o low back pain for the past 3 days. pt denies any falls but states a few nights ago she woke herself up out of bed and sat up quickly and thinks maybe she pulled a muscle. pt states that she has been doing the interventions at home, with NSAIDs, rest and heat and it has gotten better. pt states that she does have a hx of back issues with numbness going down her legs. assessment WNL today. i will order xray for further evaluation. pt to take PRN NSAIDs and heat. pt can go back to work today. pt c/o gerd for quite some time now and that she has been taking OTC omeprazole and it helps but can no longer afford it. i will send in a prescription. i will order routine labwork. pt also states that she has this rash to lower back that she has been treated for with creams in the past and it just has lightened it. on exam, pt has a patch of darkened skin to coccyx area that is raised and bumpy. doesnt appear to be a rash. i am going to refer to derm for further evaluation. pt also c/o right ear hearing feeling like it is stopped up for over a month. on exam, there appears to be a light colored impaction. ordered right ear irrigation and object came out with ease and pt tolerated procedure. Lori Bray APRN [address] [place], [address], [employer] 04/09/2024 12:19:52 10/15/2024 text/html 19 year old female presents for routine f/u. States she is taking all medications without AE. Doing well on Gerd medications and vit D. Will plan to refill today and also do routine labs. pt agreesAmenorrhea since puberty. sexually active since 15. Will plan to refer to obgyn today. pt agreesUrinary frequency x 1 month. She denies dysuria, low back pian, change in color/odor. States she voids often and had urgency. UA neg today. with symptoms, i am going to order labs and place the ob referral.Has been feeling skipped heart beat x a few months only when laying flat on abd. denies feeling currently or with every time she lays down. She states when she does feel it, its a loud beat with pauses or skips. Episodes dont last long. Denies further RAPHAEL, cp, SOA, light headedness. RRR today. EKG today NSR. Lori Bray APRN [address] [place], [phone], [employer] 10/15/2024 17:51:14 OBGyn Episode No OBEpisode recorded."
--- OUTSIDE RECORDS SUMMARY | 2025-07-29 21:47 | XMS_ITS | Referral Summary ---
Author Organization [facility] ([place], [place], [place], [place], [place]) Address [address] [place] [address] Care Team Providers Care Soil Conservation Aide Name Role Phone Unavailable Primary Care Provider Unavailabl e Allergies No known active allergies Medications No known medications Active Problems Problem Noted Date Diagnosed Date Pancreatitis, recurrent 06/22/2022 Obesity 06/22/2022 History of nicotine use 06/22/2022 Social History Tobacco Use Types Packs/Day Years Used Date Smoking Tobacco: Former Smokeless Tobacco: Never Comments:quit smoking 2 week s ago Alcohol Use Standard Drinks/Week Comments Never 0 (1 standard drink = 0.6 oz pur e alcohol) Social Connection and Isolation Panel Answer Date Recorded In a typical week, how many times do you talk on the phone with family, friends, or neighbors? Twice a week 06/23/20 How often do you get togethe r with friends or relatives? Twice a week 06/23/2022 How often [facility] you attend [facility] services? 1 to 4 times per year 06/23/2022 Do you belong to any clubs o r organizations such as religion groups, unions, fraternal or athletic groups, or school groups? No 06/23/2022 How often do you attend meet ings of the clubs or organizations you belong to? Never 06/23/2022 Marital Status Not on file 06/23/2022 Overall Financial Resource Strain (CARDIA) Answe r Date Recorded How hard is it for you to pa y for the very basics like food, housing, medical care, and heating? Not hard at all 06/23/2022 Exercise Vital Sign Answer Date Recorde d On average, how many days pe r week do you engage in moderate to strenuous exercise (like a brisk walk)? 0 days 06/23/2022 On average, how many minutes do you engage in exercise at this level? 0 min 06/23/2022 Hunger Vital Sign Answer Date Recorded Within the past 12 months, y ou worried that your food would run out before you got the money to buy more. Never true 06/23/20 22 Within the past 12 months, t he food you bought just didn't last and you didn't have money to get more. Never true 06/23/2022 PRAPARE - Transportation Answer Date Re corded In the past 12 months, has l ack of transportation kept you from medical appointments or from getting medications? No 06/14 In the past 12 months, has l ack of transportation kept you from meetings, work, or from getting things needed for daily living? No 06/23/2022 Food Insecurity Answer Date Recorded Food run out past 12 months Not on file 08/14 Food did not last past 12 months Not on file 09/01/2023 Employment Answer Date Recorded Help finding and keeping a job Not on file 0 09/01/2023 Family and Community Support Answer Renato e Recorded Help with Day to Day Activities Not on file 09/01/2023 Feeling Lonely or Isolated Not on file 09/01 Educational Attainment Answer Date Brett rded Speak language other than Bengali at home Not on file 09/01/2023 Want help with school or training Not on file 09/01/2023 Substance Use Answer Date Recorded Used prescription meds for non-medical reasons N ot on file 09/01/2023 Used illegal drugs past 12 months Not on file 09/01/2023 Comments Unknown Sex and Gender Information Value Date Recorded Sex Assigned at Not on file Legal Sex Female 5:23 PM CDT Gender Identity Not on file Sexual Orientation Not on file Last Filed Vital Signs Vital Sign Reading Time Taken Comments Blood Pressure 161/74 07/10/2022 11:25 PM EST Pulse 91 07/10/2022 11:55 PM EST Temperature 36.6 C (97.8 F) 07/10/2022 11:36 PM EST Respiratory Rate 19 07/10/2022 9:58 AM EST Oxygen Saturation 96% 07/10/2022 11:55 PM EST Inhaled Oxygen Concentration - - Weight 158.8 kg (350 lb) 07/10/2022 9:58 AM EST Height 172.7 cm (5' 8 ) 07/10/2022 9:58 AM EST Body Mass Index 53.22 07/10/2022 9:58 AM EST Plan of Treatment Not on file Procedures Procedure Name Priority Date/Time Associated Diagnosis Comments LIPID PANEL Add-On 06/23/2022 12:53 AM EST from Last 3 Months or Most Recently Relevant to Health Maintenance Results * (ABNORMAL) Lipid panel (06/23/2022 12:53 AM EST) Triglycerides 100 15 - 150 mg/dL 06/23/2022 1:43 AM EST [facility] Cholesterol 228(H) 50 - 200 mg/dL 06/23/2022 1:43 AM EST [facility] Comment: 200 to 239 mg/dL = Moderate (borderline) >239 mg/dL = High HDL Cholesterol 60 40 - 60 mg/dL 06/23/2022 1:43 AM EST [facility] Comment: >=60 mg/dL = Desirable <40 mg/dL = Increased Risk All other components are listed individually or are calculations VLDL Cholesterol 20 mg/dL 06/23/20 1:43 AM EST [facility] Cholesterol/HDL ratio 3.8 06/23/2022 1:43 AM EST [facility] LDl/HDL Ratio 2 06/23/2022 1:43 AM EST [facility] LDL Cholesterol, Calculated 148 mg/dL 06/23/2022 1:43 AM EST [facility] RISK COMP 4 06/23/2022 1:43 AM EST [facility] Blood Venipuncture / Unknown 06/23/2022 12:53 AM EST 06/23/2022 1:00 AM EST us Gia Tellez APRN LAB BLOOD ORDERABLES Final Re sult [facility] [address] [phone] from Last 3 Months or Most Recently Relevant to Health Maintenance Insurance Advance Directives For more information, please contact: [phone] * Full Code (Latest Code Status on File) Date Activated Date Inactivated Comments 06/22/2022 10:38 PM 06/24/2022 6:41 PM
--- OUTSIDE RECORDS SUMMARY | 2025-07-29 21:47 | XMS_ITS | Clinical Summary ---
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 1 to 4 times per year 06/23/2022 Do you belong to any clubs o r organizations such as alevism groups, unions, fraternal or athletic groups, or [...] on file 09/01 Educational Attainment Answer Date Bertt rded Speak language other than Tanzanian at home Not on file 09/01/2023 Want [...] 07/10/2022 9:58 AM EST Plan of Treatment Health Maintenance Due Date Last Done Comments Depression Screening (12+) 2015 HIV Screening 2018 Meningococcal B Vaccine (1 o f 2 - Standard) 2019 Hepatitis C Screening 2021 Tobacco Cessation Counseling and Screening (12+) 07/10/2023 Pap Smear 2024 COVID-19 VACCINE (3 - 2024-2 6 season) 2025 05/12/2021, 04/14/2021 Influenza Vaccine (#1) 2025 Lipid Panel 06/23/2025 06/23/2022 DTAP/TDAP/TD VACCINES (4 - T d or Tdap) 04/18/2029 04/18/2019, 04/09/2014, 04/11/2007 Pneumococcal Vaccine: 0-49 Years Aged Out No longer eligible b ased on patient's age to complete this topic Procedures Procedure Name Priority Date/Time Associated Diagnosis Comments LIPID PANEL Add-On 06/23/2022 12:53 AM EST from Last 3 Months or Most Recently Relevant to Health Maintenance Results * (ABNORMAL) Lipid panel (06/23/2022 12:53 AM EST) Triglycerides 100 15 - 150 mg/dL 06/23/2022 1:43 AM EST [facility] Cholesterol 228(H) 50 - 200 mg/dL 06/23/2022 1:43 AM EST [facility] Comment: 200 to 239 mg/dL = Moderate (borderline) >239 mg/dL = High HDL Cholesterol 60 40 - 60 mg/dL 06/23/2022 1:43 AM EST [facility] Comment: >=60 mg/dL = Desirable <40 mg/dL = Increased Risk All other components are listed individually or are calculations VLDL Cholesterol 20 mg/dL 06/23/20 1:43 AM EST [facility] Cholesterol/HDL ratio 3.8 06/23/2022 1:43 AM EST [facility] LDl/HDL Ratio 2 06/23/2022 1:43 AM EST [facility] LDL Cholesterol, Calculated 148 mg/dL 06/23/2022 1:43 AM EST [facility] RISK COMP 4 06/23/2022 1:43 AM EST [facility] Blood Venipuncture / Unknown 06/23/2022 12:53 AM EST 06/23/2022 1:00 AM EST us Gia Tellez MEDICAL RESEARCH ASSISTANT LAB BLOOD ORDERABLES Final Re sult [facility] [address] [place] [address], [facility] [phone] from Last 3 Months or Most Recently Relevant to Health [place] [address] Advance Directives For more information, please contact: [phone] * Full Code (Latest Code Status on File) Date Activated Date Inactivated Comments 06/22/2022 10:38 PM 06/24/2022 6:41 PM
--- OUTSIDE RECORDS SUMMARY | 2025-07-29 21:47 | XMS_ITS | Data Portability ---
Author Organization [facility] Address [address] [place] [address] Assessment Encounter Date Assessment Date Assessment LastModified by Organization Details LastModified Time 12/29/2022 12/29/2022 Reproductive life plan discussed. Patient does plan to have children in the future. [email or web address] Not available 12/29/2022 21:49:04 Plan of Treatment Reminders Order Date Submit Date Provider Last Modified By Organization Details Last Modified Time Details Appointments None record ed. Lab None record ed. Referral None record ed. Procedures None record ed. Surgeries None record ed. Imaging None record ed. Medication Orders None record ed. Patient TargetsNo targets recorded. Patient Instructions Encounter Date Encounter Id Patient Instructions Last Modified By Organization Details Last Modified Time 12/29/2022 [id number] body mass index: care instructions [email or web address] Not available 12/29/2022 21:50:16 learning about healthy weight [email or web address] Not available 12/29/2022 21:50:16 See HPI Rto for TVUS and fasting labs [email or web address] Not available 12/29/2022 21:50:38 Reason for Referral None Reported. Problems Name Problem SNOMED Code Status Onset Date Resolution Date Notes Provider Name and Address Organization Details Recorded Time Khloe phillips [id number] Completed 202212/26/2022 Lauren londono [facility] 13:46:00 History of pancreat itis 26399055620 107 Completed 202212/26/2022 Removal Reason: 07/11/22 Lily Carter, [employer] [address], [place], [address] , [facility] - [facility] 05/18/202 3 21:48:14 Body mass index 40+ - severely obese 106143208 Active 2022 Lauren Mccarthy null, [place] - [facility] 3 13:46:46 History of pancreat itis 83387742291 107 Active 2022 Lily Carter, [employer] [address], [place], [address], [place] - [facility] 3 21:48:14 Hyperten sive disorder 90887770 Active 2022 Lauren Mccarthy null, [place] - [facility] 3 14:56:12 Secondar y physiolo gic amenorrh ea 04701433 Active 2022 Lily Florescker, [employer] [address], [place], [address], [place] - [facility] 3 21:49:04 Childhoo d obesity 299052049 Active 2022 Lilydandy Carter, [employer] TR[employer] [address], [place], [address], [place] - [facility] 3 21:49:37 Problem Notes None recorded. Procedures Surgical History Date Name Laterality Status Provider Name and Address Organization Details Recorded Time 07/13/20 laparoscopic cholecystectomy completed Lauren Smallsann [place] - [facility] 12/26/2022 13:47:13 Imaging Results None recorded. Procedure Notes None recorded. Medical Equipment None Reported. Allergies No known drug allergies Medications Name Sig Start Date Stop Date Status Note LastModified by Organization Details LastModified Time oxycodone 5 mg tablet 2022 completed Not Available Not Available Not Available Vitals Date Recorded Body mass index (BMI) [Percentile] Per age and sex Body mass index (BMI) Provider Name and Address Organization Details Last Updated DateTime 12/29/2022 99 % 56.7 kg/m2 Lily FloresKURTIS [email or web address] [address], [place], [address], [place] - [facility] 12/29/2022 21:41:35 Date Recorded Body height Body mass index (BMI) [Percentile] Per age and sex Body weight Systolic And Diastolic Provider Name and Address Organization Details Last Updated DateTime 12/29/2022 172.72 cm 99 % 571426.9 5 g 124/88 mm[Hg] Lauren Mccarthy [place] - [facility] 12/29/2022 15:15:11 Social History Question Answer Notes LastModified by Organizat ion Details LastModified Time Tobacco Smoking Status Former Smoker Lauren londono, [place] - [facility] 12/29/2022 15:03:11 What Is Your Level Of Caffeine Consumption? Occasional [email or web address] Information not available 12/29/2022 What Is The Highest Grade Or Level Of School You Have Completed Or The Highest Degree You Have Received? MY04270-5 [email or web address] Information not available 12/29/2022 When Did You Quit Smoking? 1-5yearssincelast cigarette [email or web address] Information not available 12/29/2022 What Was The Date Of Your Most Recent Tobacco Screening? 12/29/2022 [email or web address] Information not available 12/29/2022 How Many Children Do You Have? -1 [email or web address] Information not available 12/29/2022 Do You Use Protection During Sex? No [email or web address] Information not available 12/29/2022 Do You Use Protection Against STDs? No [email or web address] Information not available 12/29/2022 What Is Your Relationship Status? Single [email or web address] Information not available 12/29/2022 Are You Sexually Active? Yes Information not available 12/29/2022 At What Age Did You Start Smoking Tobacco? 14 [email or web address] Information not available 12/29/2022 Has Tobacco Cessation Counseling Been Provided? No [email or web address] Information not available 12/29/2022 How Many Years Have You Smoked Tobacco? 3 [email or web address] Information not available 12/29/2022 What Contraceptive Method Was Reported At Start Of This Visit? None Information not available 12/29/2022 What Contraceptive Method Was Reported At End Of This Visit? None [email or web address] Information not available 12/29/2022 Do You Want To Talk About Contraception Or Prevention During Your Visit Today? No - I Do Not Want To Talk About Contraception Today Because I Am Here For Something Else [email or web address] Information not available 12/29/2022 Do You Have Any Future Plans To Get ? No, I Don't Want To Become [email or web address] Information not available 12/29/2022 What Is Your Reason For Having No Contraceptive Method At Start Of This Visit? Other [email or web address] Information not available 12/29/2022 Sex: Female Functional Status Question Answer Note LastModified by Organizat ion Details LastModified Time Do you use any illicit or recreational drugs? No [email or web address] Information not available 12/29/2022 Do you or have you ever used any other forms of tobacco or nicotine? Yes [email or web address] Information not available 12/29/2022 What is your level of alcohol consumption? None [email or web address] Information not available 12/29/2022 What is your status? Not [email or web address] Information no t available 12/29/2022 Are you able to care for yourself independently? Yes Information not available 12/29/2022 Do you or have you ever used e-cigarettes or vape? Former user of electronic cigarettes vape [email or web address] Information not available 12/29/2022 Mental Status None recorded. Family History Relationship Description Onset Age of this Age Resolved Age Notes LastModified by Organization Details LastModified Time Maternal Grandmother Malignant neoplasm of breast [email or web address] Not available 2022 15:00:31 Maternal Grandmother Diabetes mellitus [email or web address] Not available 2022 14:58:35 Maternal Grandfather Heart disease [email or web address] Not available 2022 14:58:47 Mother Malignant neoplasm of stomach 34 38 [email or web address] Not available 2022 15:00:42 Mother Malignant neoplasm of thyroid gland 34 38 [email or web address] Not available 2022 15:00:48 Mother Malignant neoplasm of colon 34 38 [email or web address] Not available 2022 15:00:37 Medical History No medical history recorded. Gynecological History Statement/Question Response Last Annual Exam/Provider never Date of LMP Sexually Active? Y Date of Last Cervical Culture Date of Last Pap Smear Current Control Method None Age at Menarche LMP Desired Control Method None Obstetrics History GPAL:G 0 P 0 0 0 0 Immunizations Vaccine Type Date Status Note Provider Nam e and Address Organization Details Recorded Time IPV 7 completed Lauren Mccarthy null, [place] - [facility] 12/29/2022 14:55:11 MMR 7 completed Lauren Mccarthy null, [place] - [facility] 12/29/2022 14:55:11 COVID-19, mRNA, LNP-S, PF, 100 mcg/0.5mL dose or 50 mcg/0.25mL dose 1 completed Lauren Mccarthy null, [place] - [facility] 12/29/2022 14:55:11 COVID-19, mRNA, LNP-S, PF, 100 mcg/0.5mL dose or 50 mcg/0.25mL dose 1 completed Lauren Mccarthy null, [place] - [facility] 12/29/2022 14:55:11 Tdap 4 completed Lauren Mccarthy null, [place] - [facility] 12/29/2022 14:55:11 Tdap 9 completed Lauren Mccarthy null, [place] - [facility] 12/29/2022 14:55:11 varicella 7 completed Lauren Mccarthy null[place] - [facility] 12/29/2022 14:55:11 Hep A, ped/adol, 2 dose 8 completed Lauren Mccarthy null, [place] - [facility] 12/29/2022 14:55:11 Hep A, ped/adol, 2 dose 9 completed Lauren Mccarthy [place], [place] - [facility] 12/29/2022 14:55:11 meningococcal MCV4P 9 completed Lauren Mccarthy null, [place] - [facility] 12/29/2022 14:55:11 DTaP, unspecified formulation 7 completed Lauren Mcc[place] - [facility] 12/29/2022 14:55:11 meningococcal MCV4, unspecified formulation 4 completed Lauren Mccarthy null[place] - [facility] 12/29/2022 14:55:11 Influenza, split virus, quadrivalent, PF 7 completed Lauren Mccarthy null, [place] - [facility] 12/29/2022 14:55:11 Past Encounters Encounter ID Performer Location Encounter Start Date Encounter Closed Date Diagnosis/Indication Diagnosis SNOMED-CT Code Diagnosis ICD10 Code Diagnosis IMO Codes Diagnosis Note [id number] SHUBHAM Solis [employer] WORK[employer] [address] [facility] [place] [address] 12/29/2022 14:32:53 12/29/2022 15:44:16 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 0 Childhood obesity 755465 003 Z68.54 Morbid obesity 951579338 E66.01 Health Concerns Section Related Observation LastModified by Organization Detai ls LastModified Time None Recorded Concern Status LastModified by Organization Details LastModified Time None Recorded Advance Directives Directive None Recorded Payers Insurance Date Sequence Insurance Name Policy Number Policy Gar Covered Member ID Gar Member ID Guarantor Name 02/15/2023 1 [employer] [place] Catarina Nascimento [id number] Catarina Nascimento 02/15/2023 1 [employer] [place] Catarina Nascimento [id number] Catarina Nascimento 02/13/2023 [place] [facility] [place] Catarina Nascimento [id number] Catarina Nascimento Notes Date Note Type Note Provider Name and Address Organization Details Recorded Time 12/29/2022 text/html Catarina presents today as a new patient to discuss never starting her menses.She reports normal development of breast and hair distribution when she was 10-12 years old. She vaguely recalls maybe a day when she noticed scant spotting when she should have experienced menarche.Catarina lost her mother when she was 14. She never knew her dad.Catairna has a BMI of 56.7%. She has family h/o DM. She states she had labs a couple of years ago and was negative for diabetes.Catarina is sexually active. She lives with her BF in [place].Her childhood friend is with her today. Lily Carter, [employer] TR[employer]MER [address], [place], [address], [place] - [facility] 12/29/2022 21:52:13 OBGyn Episode No OBEpisode recorded.
--- OUTSIDE RECORDS SUMMARY | 2025-07-29 21:47 | XMS_ITS | Clinical Summary ---
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
--- NOTE | 2025-07-29 21:59 | [facility].EDGENADL ---
Discharge Plan Disposition Patient Disposition: Home, Self-Care Condition: Good Prescriptions Prescriptions: New lidocaine 5 % adhesive patch,medicated 1 patch topical DAILY Qty: 15 0RF Rx Instructions: leave on most painful area for up to 12 hrs methocarbamol 500 mg tablet 500 mg PO Q6H Qty: 120 0RF ibuprofen 600 mg tablet 600 mg PO Q6H 3 Days Qty: 12 0RF acetaminophen [Tylenol Extra Strength] 500 mg tablet 1,000 mg PO Q6H PRN (Reason: pain) 3 Days Qty: 20 0RF No Action ondansetron 4 mg tablet,disintegrating 4 mg PO Q6H PRN (Reason: nausea and vomiting) Qty: 10 0RF Referrals Follow up/Referrals: Tahir Jauregui MD [Primary Care Provider, Medical] - See instructions Activity Restrictions/Add. Instructions Additional Instructions/Restrictions: Take the Robaxin, use the lidocaine patches and take Tylenol and ibuprofen [id number] for the next couple days. You can use heat and ice as needed. Follow-up with your primary care provider. We have provided you with a work note for a couple days continue to stretch for symptomatic management. Clinical Impressions Clinical Impression: Musculoskeletal back pain Stand Alone Forms Stand Alone Forms: Work/School Release Print Language Print Language: Spanish Discharge ED Provider: Eryn Babb Adult HPI General Chief complaint: PAIN Stated complaint: Lower back pain Time Seen by Provider: 07/29/25 21:42 Mode of Arrival: Ambulatory Source of Information: Patient Description of Symptoms (Recalled from ER Triage Doc. by RN): Pt presents to ER with lower back pain x 1 week. Pt reports that she was getting ready to go to the doctors when she was getting dressed and felt a tightening sensation in her back which caused her to fall to the floor in pain. Pt denies hitting her head. Denies any recent back surgeries. Pt states that she took one 10 mg oxycodone and 2 aleve prior to coming to the ER in attempt to relieve her pain. History of Present Illness HPI narrative: Patient is a 20-year-old female with no significant past medical history who presents to the emergency department with back pain. Patient states that she went to put her pants on with bending when she fell and patient laid on the ground for 4 hours before her boyfriend got home and helped her up. Patient states that she had to crawl on the floor. She denies any back surgeries or other back pain. Patient denies any numbness or weakness. Patient states that her back pain is in her middle lower back as well as on the right side. Patient states that her pain is worse with movement. Patient has been able to urinate without difficulties. Patient denies any fevers. Patient denies any IV drug use. Patient took oxycodone at 2 PM prior to arrival and 2 Aleve at 8 PM. Patient states that she does a lot of lifting at work. Related Data Previous Rx's ?Medication ?Instructions ?Recorded ondansetron 4 mg disintegrating 4 mg PO Q6H PRN nausea and 10/04/23 tablet vomiting #10 tabs acetaminophen 500 mg tablet 1,000 mg (2 x 500 mg) PO Q6H PRN 07/29/25 (Tylenol Extra Strength) pain 3 days #20 tabs ibuprofen 600 mg tablet 600 mg PO Q6H 3 days #12 tabs 07/29/25 lidocaine 5 % topical patch 1 patch topical DAILY #15 ea 07/29/25 methocarbamol 500 mg tablet 500 mg PO Q6H #120 tabs 07/29/25 Allergies Allergy/AdvReac Type Severity Reaction Status Date / Time No Known Allergies Allergy Verified 10/04/23 08:05 [facility] Disclaimer: The information contained in this section may have been updated after the patient was seen, as this information can be updated by other users. Surgical History (Updated 10/04/23 @ 08:06 by Nilesh Farah RN) Hx of cholecystectomy Social History (Updated 10/04/23 @ 10:09 by Shantanu Teran MD) Smoking Status: Never smoker alcohol intake: current current occupational status: employed Travel in the last 8 weeks?: None Have you lived/traveled outside [place] in past 30 days?: No Contact w/someone who lives/traveled outside [place] past 30 days?: No Exposure to someone with infectious disease in past 14 days?: No Do you have a fever (greater than 100.4 F or 38 C)?: No Have you tested positive for COVID-19?: No Exposed to someone with COVID-19 in past 14 days?: No Do you have a sore throat?: No Do you have a cough?: No Do you have any weakness?: No Do you have any diarrhea?: No Are you experiencing any unusual bleeding?: No Do you have any muscle aches/pain?: No Do you have any abdominal pain?: No Are you experiencing loss of taste or smell?: No ROS Obtained: Yes All systems reviewed & no additional complaints except as documented and Yes Systems reviewed as appropriate & no additional complaints except as documented Physical Exam General General appearance: alert and in no apparent distress Head Head exam: atraumatic, normocephalic and normal inspection Eye Eye exam: Present normal appearance, PERRL and EOMI; Absent scleral icterus ENT ENT exam: Present normal exam and normal external ear exam Neck Neck exam: Present normal inspection and full ROM Chest Chest inspection: Present normal inspection and symmetric chest wall rise Respiratory Respiratory exam: Present normal lung sounds bilaterally; Absent respiratory distress or wheezes Cardiovascular Cardiovascular exam: Present regular rate, normal rhythm and normal heart sounds Abdominal Exam Abdominal exam: Present soft and distention; Absent tenderness, guarding or rebound Extremities Exam Extremities exam: Present normal inspection and full ROM Back Exam Back exam: Present normal inspection, full ROM and tenderness (lumbar spine tenderness and paraspinal tenderness); Absent CVA tenderness (R) or CVA tenderness (L) Neurological Exam Neurological exam: Present alert, oriented X3, CN II-XII intact, normal gait and reflexes normal; Absent motor sensory deficit Psychiatric Psychiatric exam: Present normal affect and normal mood Skin Skin exam: Present warm and dry Medical Decision Making Medical Records Medical records reviewed: Yes I reviewed the patient's medical records. Screening: Per USPSTF and CDC recommendations, given the prevalence of disease in our region, it is our hospital?s policy to screen for HIV and viral Hepatitis for all patients aged 18 and over and those with ongoing risk factors. Jon Inquiry Pt receiving controlled substance: No Vital Signs: 07/29/25 21:48 07/29/25 22:25 Temperature 98.3 F Temperature Source Oral Pulse Rate 80 Pulse Rate [Left Radial] 80 Respiratory Rate 18 Blood Pressure [Right Arm] 133/77 Blood Pressure Mean [Right Arm] 95 Blood Pressure Source [Right Arm] Automatic Cuff Blood Pressure Position [Right Arm] Sitting 02 Sat by Pulse Oximetry 97 96 Oxygen Delivery Method Room Air Room Air Lab Data Lab results reviewed: Yes I reviewed the patient's lab results. Lab Results 07/29/25 22:15: Urine Color Yellow, Urine Appearance Sl cloudy, Urine pH 6.0, Ur Specific [place] 1.025, Urine Protein Negative, Urine Glucose (UA) Negative, Urine Ketones Negative, Urine Blood Negative, Urine Nitrate Negative, Urine Bilirubin Negative, Urine Urobilinogen 0.2, Ur Leukocyte Esterase Negative, Urine RBC 5-10, Urine WBC 5-10, Ur Squamous Epith Cells 5-10, Urine Bacteria 1+, Urine Mucus 3+, Urine HCG, Qual Negative Orders (Tests/Meds): ED MEDICATIONS Discontinued Medications Generic Name Dose Route Start Last Admin Trade Name Gustavo PRN Reason Stop Dose Admin Acetaminophen 1,000 mg 07/29/25 22:06 07/29/25 22:25 Acetaminophen 500mg Tab PO 07/29/25 22:07 1,000 mg ONCE ONE Administration Diazepam 5 mg 07/29/25 22:06 07/29/25 22:25 Diazepam 5mg Tablet PO 07/29/25 22:07 5 mg ONCE ONE Administration Lidocaine 1 each 07/29/25 22:06 07/29/25 22:25 Lidocaine 5% Transdermal Patch TD 07/29/25 22:07 1 each ONCE ONE Administration Oxycodone HCl 5 mg 07/29/25 22:07 07/29/25 22:25 Oxycodone 5mg Immediate Release Tablet PO 07/29/25 22:08 5 mg ONCE ONE Administration ORDERS Category Date Time Status CT lumbar spine wo con Stat Cat Scan 07/29/25 22:05 Completed UA [Urinalysis and Microscopic] Stat Lab 07/29/25 22:15 Completed Urine , HCG Qual. Stat Lab 07/29/25 22:15 Completed Medical Decision Narrative: Patient is an otherwise healthy 20-year-old female who presented to the emergency department with back pain. On arrival, patient was hemodynamically stable with unremarkable vital signs. Differential includes but not limited to: Musculoskeletal spasm, sciatica, back fracture, urinary tract infection, amongst others. On exam, patient had some midline spinal tenderness as well as some right paraspinal tenderness. I suspect that this is very likely to be musculoskeletal in nature however given that patient did have a fall CT scan of the lumbar spine was obtained. Patient was given oral medications for symptomatic management. Patient had no red flag symptoms such as IV drug use, fevers, previous malignancy. Has had normal urinary symptoms therefore low concern for serious spinal pathology. UA showed no evidence of infection. Negative . Patient CT scan showed no acute fractures. Patient's pain was significantly improved with oral medications here in the emergency department. Patient was sent with oral medications the patient was otherwise discharged home in stable condition. Critical Care Critical Care Time Critical Care Time: No
--- NOTE | 2025-07-29 22:05 | CT_ITS ---
PROCEDURE INFORMATION: Exam: CT Lumbar Spine Without Contrast Exam date and time: 07/29/2025 10:49 PM Age: 20 years old Clinical indication: Low back pain; Additional info: Back pain with trauma, midline, nvi TECHNIQUE: Imaging protocol: Computed tomography of the lumbar spine without contrast. Radiation optimization: All CT scans at this facility use at least one of these dose optimization techniques: automated exposure control; mA and/or kV adjustment per patient size (includes targeted exams where dose is matched to clinical indication); or iterative reconstruction. COMPARISON: No relevant prior studies available. FINDINGS: Bones/joints: No acute fracture. Normal alignment without spondylolisthesis. Intervertebral disc height loss and mild posterior disc bulge at L5-S1 with mild spinal canal stenosis and mild bilateral neural foraminal stenosis. Soft tissues: Unremarkable. IMPRESSION: No acute fracture of the lumbar spine.
[2025-07-29 22:23] LABS: Microscopic, Urine URINE MICROSCOPIC (MICROSCOPIC)
[2025-07-29] MEDS: LIDOCAINE 5% TRANSDERMAL PATCH 1 EACH TD (22:25)
[2025-07-29] MEDS: OXYCODONE 5MG IMMEDIATE RELEASE TABLET 5 MG PO (22:25)
[2025-07-29] MEDS: ACETAMINOPHEN 500MG TAB 1000 MG PO (22:25)
[2025-07-29] MEDS: diazePAM 5MG TABLET 5 MG PO (22:25)
[2025-07-29 22:26] LABS: Bilirubin,Urine Negative (Negative); Color,Urine YELLOW (Yellow); Glucose,Urine (UA) Negative (Negative); Ketones,Urine Negative (Negative); Leukocyte Esterase,Urine Negative (Negative); PH,Urine 6.0 (5.0-8.5); Protein,Urine Negative (Negative); Specific Gravity, Urine 1.025 (1.005-1.030); Urobilinogen,Urine 0.2 EU/dl (0.2)
[2025-07-29 22:29] LABS: Urine Pregnancy, HCG Qual. Negative (Negative)
[2025-07-29 22:43] LABS: Bacteria,Urine 1+ /lpf; Mucus,Urine 3+ /lpf
== END 2025-07-29 23:49 | disposition home or self-care (01) ==
PROVIDERS: Emergency Provider Student in an Organized Health Care Education/Training Program; PCP Internal Medicine Adolescent Medicine
DX: M54.59 Other low back pain (principal)
CPT/HCPCS: 72131; 81001; 81025; 99284